=== PATIENT | female | born 1940 | race Caucasian/White ===

== ENCOUNTER 2016-05-15 08:26 | Day surgery (SDC) | payer MEDICARE ==
--- NOTE | 2016-04-19 07:45 | HP ---
HISTORY AND PHYSICAL: DATE OF ADMISSION: 05/15/16 DATE OF OFFICE VISIT: 04/18/16 SURGEON: Nery Huerta MD PROCEDURE: Removal of hardware, right knee. CHIEF COMPLAINT: Right knee pain. HISTORY OF PRESENT ILLNESS: Ms. Jaramillo is a 75-year-old female who underwent an ORIF of her right femur on 09/28/15. She comes today with complaints of right knee pain on the medial aspect in the k nee where there is a prominent screw tip. She says she has pain with full extension and every time she has to stand from a seated position. She has elected to proceed to have the screw removed. Linden hartmann is scheduled for 05/15/16. PAST MEDICAL HISTORY: AFib, mitral valve disease, hypothyroidism, and history of a DVT. PAST SURGICAL HISTORY: ORIF of the right femur, right elbow surgery, right knee arthroscopy, and ap pendectomy. CURRENT MEDICATIONS: 1. Vitamin D. 2. Metoprolol. 3. Levothyroxine. 4. Multaq. 5. Fish oil. 6. Aspirin. ALLERGIES: To CIPRO. FAMILY HISTORY: Denies. SOCIAL HISTORY: She is a 75-year-old female. She lives with her . She does not smoke, use drugs, or alcohol. REVIEW OF SYSTEMS: A complete 14-point review of systems was reviewed with the patient and was posi tive for a history of DVT. PHYSICAL EXAMINATION GENERAL: She is well-developed, well-nourished in no acute distress. VITAL SIGNS: She stands 5 feet 7 inches tall, weighs 145 pounds, her blood pressure is 108/58, her heart rate is 78. HEENT: Normocephalic, atraumatic. NECK: Supple. No palpable lymph nodes. Trachea is midline. PULMONARY: The lungs are clear to auscultation bilaterally. No wheezes, rhonchi, or rales. CARDIO: Regular rate and rhythm. Strong S1, S2. No murmurs, gallops, or rubs. ABDOMEN: Soft, nontender, nondistended. NEUROLOGICAL: Alert and oriented x3. Cranial nerves II through XII are intact. MUSCULOSKELETAL: Right lower extremity: The skin is intact. There is mild-to- moderate joint effu deven. She has full range of motion; however, full extension reproduces pain and palpation over the medial aspect of the knee reveals tip of screw. ASSESSMENT AND PLAN: Ms. Jaramillo is a 75-year-old female who underwent an ORIF of the right femur back in August. She continues to have some medial knee pain secondary to tip of the screw being sligh tly too long. She has elected to proceed with surgery to have that screw removed. Her surgery is s cheduled for 05/15/[address] Huerta. ROLANDO CAMACHO [id number]/[facility] #: [id number]
[~2016-05-15 08:26] MED LIST: Buffered Lidocaine 1% SYR 3ML* 3 ML/SYR SYRINGE INTRADERM ONE
[2016-05-15] MEDS ORDERED: ceFAZolin 2 GM PREMIX (*) 2 GM/50 ML BAG IVPB ONE (08:40)
[2016-05-15] MEDS ORDERED: Bupivacaine 0.5% SDV PF* 30 ML VIAL ONE (09:48)
[2016-05-15] MEDS ORDERED: fentaNYL* 50 MCG/ML 2 ML VIAL (100 MCG VIAL) ONE (10:45)
[2016-05-15] MEDS ORDERED: Midazolam* 1 MG/ML 5 ML VIAL (5 MG) ONE (10:45)
[2016-05-15] MEDS ORDERED: Chloroprocaine 2%* 20 ML VIAL ONE (10:49)
[2016-05-15] MEDS ORDERED: fentaNYL* 50 MCG/ML 2 ML VIAL (100 MCG VIAL) IV PRN (11:28)
[2016-05-15] MEDS ORDERED: oxyCODONE/Acetamin 5/325 MG* TAB PO PRN (11:28)
[2016-05-15 13:57] VITALS: BP 126/52
--- NOTE | 2016-05-16 15:13 | RAD ---
INDICATION: Removal of hardware, S 72.421D COMPARISONS: None relevant TECHNIQUE: Fluoroscopy was provided for a surgical procedure. Total fluoroscopy time is: 3.5 seconds FINDINGS: Spot images demonstrate a fixation plate and screws of the distal femur IMPRESSION: FLUOROSCOPY WAS PROVIDED FOR A SURGICAL PROCEDURE CPT II Codes: 6045F
--- NOTE | 2016-05-17 04:59 | OP ---
DATE OF OPERATION: 05/15/16 [facility] DATE OF : 36 ATTENDING SURGEON: Nery Huerta MD RETAIL SALESWORKER: ROLANDO Dyson ANESTHESIOLOGIST: Dr. Jamil Rowland. ANESTHESIA: Spinal. PRE-OP DIAGNOSIS: Painful distal femur hardware. POST-OP DIAGNOSIS: Painful distal femur hardware. OPERATIVE PROCEDURE: Removal of painful hardware from right distal femur. COMPLICATIONS: None. TOURNIQUET TIME: Eight minutes. EBL: Less than 25 cc. SPECIMEN: One screw sent to pathology. BRIEF HISTORY/INDICATION: Ms. Jaramillo is a 75-year-old female who had a fall with a distal femoral fracture over six months ago. This was treated with a distal femoral locking plate. She went on to recover and did well. She has been full weightbearing and ambulating. She noticed the tip of one screw along her medial distal thigh, which caused her some pain with certain activities. She elected to have this removed. Informed consent was obtained from the patient. She understood the risks of surgery included but were not limited to bleeding, infection, damage to nearby structures, continued pain, need for further surgery, inability to remove the hardware, fracture, stroke, heart attack, blood clot and . She wished to proceed. INTRAOPERATIVE FINDINGS: Intraoperatively, the patient's most distal screw in the distal femoral locking plate did protrude medially. This was removed without any visible purulence or obvious abnormality around the plate or screw. DESCRIPTION OF PROCEDURE: Ms. Jaramillo was identified in the preanesthesia unit. Her right lower extremity was marked as the correct operative site. Informed consent was signed and placed in the chart. The patient was taken to the operating room and placed under spinal anesthesia. Tourniquet was placed on the right thigh. Right lower extremity was prepped and draped in the usual sterile fashion. Preop time-out was made to correctly identify the patient's side and site. Appropriate perioperative antibiotics were given within 1 hour of incision. AP views on the C-arm were used to confirm the position for the incision. A 4- cm incision was made along her prior distal incision. This was opened carefully with tenotomies. The lateral fascia was incised in line with the incision. The plate and screws were easily visible at this point. A small amount of fibrous tissue was removed from the most distal screw. There was no purulence or other abnormal tissue. The correct screwdriver was located and chosen. This was used to remove the most distal screw. At this point, the protruding screw tip was palpably removed. C-arm views confirmed satisfactory removal of the screw. The area was cleaned with a curette. The incision was then copiously irrigated with sterile saline. The lateral fascia was reapproximated using interrupted 2-0 Vicryl. The rest of the incision was closed in a layered fashion using 2-0 Vicryl and the skin was closed with running 3-0 Monocryl and Dermabond. Sterile Adaptic, 4x4's, and paper tape were used to cover the incision. The patient's anesthesia was reversed without difficulty. She was taken to the PACU in stable condition. Total tourniquet time for this procedure was 8 minutes. [id number]/[facility] #: [id number] MERLYN
== END 2016-05-15 14:37 | disposition home or self-care (01) ==
LOC: OR 08:26
PROVIDERS: ATTEND Orthopaedic Surgery Adult Reconstructive Orthopaedic Surgery
DX: T84.84XA Pain due to internal orthopedic prosthetic devices, implants and grafts, initial encounter (principal); S72.401D Unspecified fracture of lower end of right femur, subsequent encounter for closed fracture with routine healing; I34.8 Other nonrheumatic mitral valve disorders; I47.1 Supraventricular tachycardia; I48.0 Paroxysmal atrial fibrillation; E03.9 Hypothyroidism, unspecified; X58.XXXD Exposure to other specified factors, subsequent encounter
CPT/HCPCS: 76000; 88300; J0690; J2250; J2400; J3010

== ENCOUNTER 2021-06-06 09:43 | Inpatient (IN) ==
[2021-06-06] MEDS ORDERED: Morphine 2 MG/ML SYRINGE IV ONE (10:17)
[2021-06-06] MEDS ORDERED: Ondansetron 4 mg VIAL 2 MG/ML 2 ml VIAL IV ONE ×3 (10:17→17:45)
[2021-06-06 11:04] LABS: ABS Basophils 0.1 10^3/ul (0-0.2); ABS Eosinophils 0.1 10^3/ul (0-0.6); ABS Lymphocytes 0.9 10^3/ul (1.0-4.8); ABS Monocytes 0.3 10^3/ul (0-0.8); Eosinophil % 1.2 %; Hematocrit 35 % (35-47); Hemoglobin 11.7 g/dL (12.0-16.0); Lymphocyte % 14.3 %; Mean Corpuscular HGB Conc 33 g/dL (31-36); Mean Corpuscular Hemoglobin 30 pg (27-31); Mean Corpuscular Volume 90 fL (80-97); Mean Platelet Volume 9.4 fL (7.4-10.4); Platelet Count 204 10^3/uL (150-450); Red Blood Count 3.93 10^6 /uL (3.70-4.87); Red Cell Distribution Width 14 % (10-15); White Blood Count 6.3 10^3/uL (3.5-10.8)
[2021-06-06 11:21] LABS: Activated Partial Thrombo Time 31.2 seconds (26.0-38.0); INR 1.02 (0.86-1.15)
[2021-06-06 12:29] LABS: Albumin/Globulin Ratio 1.4 (1-3); Calcium 9.6 mg/dL (8.6-10.3); Globulin 2.9 g/dL (2-4); Potassium 3.9 mmol/L (3.5-5.0); Total Bilirubin 0.6 mg/dL (0.2-1.0); Total Protein 6.9 g/dL (6.4-8.9); eGFR CKD-EPI 84.8 (>60)
[2021-06-06] MEDS ORDERED: HYDROmorphone 0.5 MG/0.5 ML SYRINGE IV SLOW PU ONE (13:02)
[2021-06-06] MEDS ORDERED: Metoclopramide 5 MG/ML VIAL (10 mg) IV SLOW PU ONE (13:02)
[2021-06-06 13:28] LABS: Calcium 9.5 mg/dL (8.6-10.3); Potassium 3.6 mmol/L (3.5-5.0); eGFR CKD-EPI 87.2 (>60)
[2021-06-06] MEDS ORDERED: Lactated Ringers 1000 ml BAG 1,000 ML IV SCH ×2 (14:00)
[2021-06-06] MEDS: Metoprolol Tartrate 5 mg VIAL 5 ml VIAL (1 mg/ml) IV SCH ×2 (14:06→20:59)
[2021-06-06] MEDS ORDERED: fentaNYL 100 mcg/2 ml 50 MCG/ML VIAL IV SLOW PU PRN (16:03)
[2021-06-06] MEDS: Prochlorperazine 5 mg/ml 2 ml VIAL (10 mg) IV PRN (16:22)
[2021-06-06] MEDS ORDERED: Metoclopramide 5 MG/ML VIAL (10 mg) IV ONE (17:47)
[2021-06-06] MEDS ORDERED: Metoclopramide 5 MG/ML VIAL (10 mg) ONE (17:52)
[2021-06-06] MEDS ORDERED: Ondansetron 4 mg VIAL 2 MG/ML 2 ml VIAL ONE ×2 (17:52→19:02)
[2021-06-06] MEDS ORDERED: Succinylcholine 200 mg VIAL 20 mg/ml 10 ml VIAL (200 mg) ONE (18:00)
[2021-06-06] MEDS ORDERED: Propofol 10 MG/ML 20 ML BTL ONE ×4 (18:00→20:15)
[2021-06-06] MEDS ORDERED: Lidocaine 2% PF 5 ML VIAL ONE (18:01)
[2021-06-06] MEDS ORDERED: ceFAZolin 2 GM in NS PREMIX 2 GM/100 ML BAG IVPB ONE (18:01)
[2021-06-06] MEDS ORDERED: fentaNYL 100 mcg/2 ml 50 MCG/ML VIAL ONE (18:04)
[2021-06-06] MEDS ORDERED: ROPIVACAINE 5 MG/ML 30 ML BTL (0.5%) ONE (18:06)
[2021-06-06] MEDS ORDERED: Rocuronium 50 mg VIAL 10 mg/ml 5 ml VIAL (50 mg) ONE (18:06)
[2021-06-06] MEDS ORDERED: Dexamethasone IV 4 MG/ML VIAL 1 ml VIAL ONE (19:04)
[2021-06-06] MEDS ORDERED: Scopolamine 1 mg/72hr PATCH ONE (19:07)
[2021-06-06] MEDS ORDERED: Midazolam 2 mg/2 ml VIAL 1 mg/ml 2 ml VIAL (2 mg) ONE ×2 (19:09→19:34)
[2021-06-06] MEDS ORDERED: EPHEDrine (Pressors) 50 MG/ML VIAL ONE (19:17)
[2021-06-06] MEDS ORDERED: Acetaminophen IV 1 GM/100ML 100 ML IV ONE (20:40)
[2021-06-06 23:56] LABS: ABS Lymphocytes 0.3 10^3/ul (1.0-4.8); ABS Monocytes 0.2 10^3/ul (0-0.8); ABS Neutrophils 8.6 10^3/ul (1.5-7.7); Hematocrit 32 % (35-47); Hemoglobin 10.1 g/dL (12.0-16.0); Lymphocyte % 3.4 %; Mean Corpuscular HGB Conc 32 g/dL (31-36); Mean Corpuscular Hemoglobin 29 pg (27-31); Mean Corpuscular Volume 92 fL (80-97); Mean Platelet Volume 9.5 fL (7.4-10.4); Platelet Count 166 10^3/uL (150-450); Red Blood Count 3.45 10^6 /uL (3.70-4.87); Red Cell Distribution Width 14 % (10-15); White Blood Count 9.2 10^3/uL (3.5-10.8)
[2021-06-07 00:41] LABS: Calcium 8.7 mg/dL (8.6-10.3); Potassium 3.6 mmol/L (3.5-5.0); eGFR CKD-EPI 88.5 (>60)
[2021-06-07] MEDS: Metoprolol Tartrate 5 mg VIAL 5 ml VIAL (1 mg/ml) IV SCH (00:43)
[2021-06-07] MEDS: ceFAZolin 1 GM X 3 DOSES POST-OP Q8H (AddVan) IVPB SCH ×3 (02:24→18:56)
[2021-06-07 05:47] LABS: ABS Lymphocytes 0.6 10^3/ul (1.0-4.8); ABS Monocytes 0.5 10^3/ul (0-0.8); ABS Neutrophils 7.1 10^3/ul (1.5-7.7); Hematocrit 28 % (35-47); Hemoglobin 9.4 g/dL (12.0-16.0); Lymphocyte % 6.9 %; Mean Corpuscular HGB Conc 34 g/dL (31-36); Mean Corpuscular Hemoglobin 30 pg (27-31); Mean Corpuscular Volume 89 fL (80-97); Mean Platelet Volume 9.6 fL (7.4-10.4); Platelet Count 160 10^3/uL (150-450); Red Blood Count 3.12 10^6 /uL (3.70-4.87); Red Cell Distribution Width 14 % (10-15); White Blood Count 8.2 10^3/uL (3.5-10.8)
[2021-06-08] MEDS: Prochlorperazine 5 mg/ml 2 ml VIAL (10 mg) IV PRN (03:58)
[2021-06-08 06:09] LABS: ABS Eosinophils 0.1 10^3/ul (0-0.6); ABS Lymphocytes 0.7 10^3/ul (1.0-4.8); ABS Monocytes 0.5 10^3/ul (0-0.8); ABS Neutrophils 5.8 10^3/ul (1.5-7.7); Eosinophil % 0.8 %; Hematocrit 23 % (35-47); Lymphocyte % 9.4 %; Mean Corpuscular HGB Conc 34 g/dL (31-36); Mean Corpuscular Hemoglobin 30 pg (27-31); Mean Corpuscular Volume 89 fL (80-97); Mean Platelet Volume 9.3 fL (7.4-10.4); Platelet Count 130 10^3/uL (150-450); Red Blood Count 2.63 10^6 /uL (3.70-4.87); Red Cell Distribution Width 14 % (10-15); White Blood Count 7.1 10^3/uL (3.5-10.8)
[2021-06-08] MEDS: Ondansetron 4 mg VIAL 2 MG/ML 2 ml VIAL IV PRN (09:13)
[2021-06-08] MEDS ORDERED: Oral Rinse (Biotene)(NF) 237 ML or 473 ML ORAL RINSE BTL MT PRN (09:58)
[2021-06-08] MEDS: Scopolamine 1 mg/72hr PATCH TRANSDERM SCH (13:59)
[2021-06-09 06:59] LABS: ABS Eosinophils 0.1 10^3/ul (0-0.6); ABS Lymphocytes 0.8 10^3/ul (1.0-4.8); ABS Monocytes 0.5 10^3/ul (0-0.8); ABS Neutrophils 4.8 10^3/ul (1.5-7.7); Eosinophil % 0.9 %; Hematocrit 24 % (35-47); Lymphocyte % 13.1 %; Mean Corpuscular HGB Conc 34 g/dL (31-36); Mean Corpuscular Hemoglobin 30 pg (27-31); Mean Corpuscular Volume 89 fL (80-97); Mean Platelet Volume 9.5 fL (7.4-10.4); Platelet Count 142 10^3/uL (150-450); Red Blood Count 2.65 10^6 /uL (3.70-4.87); Red Cell Distribution Width 13 % (10-15); White Blood Count 6.2 10^3/uL (3.5-10.8)
[2021-06-09] MEDS: Ondansetron 4 mg VIAL 2 MG/ML 2 ml VIAL IV PRN (09:00)
[2021-06-10 05:02] LABS: ABS Eosinophils 0.2 10^3/ul (0-0.6); ABS Monocytes 0.5 10^3/ul (0-0.8); ABS Neutrophils 4.2 10^3/ul (1.5-7.7); Eosinophil % 2.8 %; Hematocrit 23 % (35-47); Hemoglobin 7.7 g/dL (12.0-16.0); Lymphocyte % 16.8 %; Mean Corpuscular HGB Conc 34 g/dL (31-36); Mean Corpuscular Hemoglobin 30 pg (27-31); Mean Corpuscular Volume 89 fL (80-97); Mean Platelet Volume 9.3 fL (7.4-10.4); Nucleated Red Blood Cells % 0.1; Platelet Count 149 10^3/uL (150-450); Red Blood Count 2.55 10^6 /uL (3.70-4.87); Red Cell Distribution Width 14 % (10-15)
[2021-06-10] MEDS: Acetaminophen IV 1 GM/100ML 100 ML IV PRN ×2 (05:18→21:23)
[2021-06-10] MEDS ORDERED: Iron Sucrose 20 MG/ML 5 ML VIAL IV PUSH SCH (09:00)
[2021-06-10 09:23] LABS: Total Iron Binding Capacity 246 mcg/dL (250-450); Transferrin 176 mg/dL (203-362)
[2021-06-10 09:24] LABS: % Iron Saturation 8 % (15-55); Iron < 20 ug/dL (50-212); Unsaturated Iron Binding 226 ug/dL
[2021-06-10] MEDS: Iron Sucrose 200 MG in NS 0.9% 100 ml IVPB SCH (09:56)
[2021-06-11 06:19] LABS: ABS Basophils 0.1 10^3/ul (0-0.2); ABS Eosinophils 0.3 10^3/ul (0-0.6); ABS Lymphocytes 1.2 10^3/ul (1.0-4.8); ABS Monocytes 0.5 10^3/ul (0-0.8); ABS Neutrophils 3.2 10^3/ul (1.5-7.7); Eosinophil % 5.5 %; Hematocrit 22 % (35-47); Hemoglobin 7.4 g/dL (12.0-16.0); Mean Corpuscular HGB Conc 34 g/dL (31-36); Mean Corpuscular Hemoglobin 30 pg (27-31); Mean Corpuscular Volume 89 fL (80-97); Mean Platelet Volume 9.6 fL (7.4-10.4); Nucleated Red Blood Cells % 0.1; Platelet Count 177 10^3/uL (150-450); Red Blood Count 2.45 10^6 /uL (3.70-4.87); Red Cell Distribution Width 14 % (10-15); White Blood Count 5.3 10^3/uL (3.5-10.8)
[2021-06-11] MEDS: Iron Sucrose 200 MG in NS 0.9% 100 ml IVPB SCH (10:30)
[2021-06-11] MEDS: Scopolamine 1 mg/72hr PATCH TRANSDERM SCH (16:44)
[2021-06-11 17:37] LABS: Urine Appearance Turbid; Urine Bilirubin Negative (Negative); Urine Blood 2+ (Negative); Urine Color Yellow; Urine Glucose Negative (Negative); Urine Ketones Negative (Negative); Urine Nitrite Negative (Negative); Urine Protein Negative (Negative); Urine Specific Gravity 1.005 (1.002-1.030); Urine Urobilinogen Negative (Negative)
[2021-06-12 06:18] LABS: ABS Basophils 0.1 10^3/ul (0-0.2); ABS Eosinophils 0.2 10^3/ul (0-0.6); ABS Lymphocytes 1.4 10^3/ul (1.0-4.8); ABS Monocytes 0.7 10^3/ul (0-0.8); ABS Neutrophils 7.1 10^3/ul (1.5-7.7); Eosinophil % 2.4 %; Hematocrit 28 % (35-47); Hemoglobin 9.5 g/dL (12.0-16.0); Lymphocyte % 14.8 %; Mean Corpuscular HGB Conc 34 g/dL (31-36); Mean Corpuscular Hemoglobin 30 pg (27-31); Mean Corpuscular Volume 89 fL (80-97); Mean Platelet Volume 9.1 fL (7.4-10.4); Platelet Count 231 10^3/uL (150-450); Red Blood Count 3.13 10^6 /uL (3.70-4.87); Red Cell Distribution Width 14 % (10-15); White Blood Count 9.4 10^3/uL (3.5-10.8)
[2021-06-12 07:39] VITALS: BP 134/74
[2021-06-12] MEDS: Iron Sucrose 200 MG in NS 0.9% 100 ml IVPB SCH (08:28)
[2021-06-12] MEDS: Polyethylene Glycol 3350 17 GM PACKET PO SCH ×2 (08:37→09:47)
== END 2021-06-12 09:40 | DRG 481 ==
LOC: ED 09:43 → SUATTDRO 13:27 → EDHOLD 13:27 → SSU 15:39
PROVIDERS: ADMIT Internal Medicine; ATTEND Pediatrics

== ENCOUNTER 2021-06-12 08:04 | Inpatient (IN) ==
[2021-06-12] MEDS ORDERED: Senna TAB 8.6 mg TAB PO PRN (12:28)
[2021-06-12] MEDS ORDERED: Polyethylene Glycol 3350 17 GM PACKET PO PRN (12:35)
[2021-06-13] MEDS ORDERED: Iron Sucrose 200 MG in NS 0.9% 100 ml BAG 100 ML IVPB ONE (09:00)
[2021-06-14 06:13] LABS: ABS Basophils 0.1 10^3/ul (0-0.2); ABS Eosinophils 0.3 10^3/ul (0-0.6); ABS Lymphocytes 1.1 10^3/ul (1.0-4.8); ABS Monocytes 0.8 10^3/ul (0-0.8); ABS Neutrophils 5.2 10^3/ul (1.5-7.7); Eosinophil % 4.2 %; Hematocrit 27 % (35-47); Hemoglobin 9.3 g/dL (12.0-16.0); Lymphocyte % 15.1 %; Mean Corpuscular HGB Conc 34 g/dL (31-36); Mean Corpuscular Hemoglobin 31 pg (27-31); Mean Corpuscular Volume 90 fL (80-97); Mean Platelet Volume 8.2 fL (7.4-10.4); Nucleated Red Blood Cells % 0.1; Platelet Count 270 10^3/uL (150-450); Red Blood Count 3.03 10^6 /uL (3.70-4.87); Red Cell Distribution Width 14 % (10-15); White Blood Count 7.4 10^3/uL (3.5-10.8)
[2021-06-14 06:53] LABS: Albumin 3.2 g/dL (3.2-5.2); Albumin/Globulin Ratio 1.3 (1-3); Calcium 8.8 mg/dL (8.6-10.3); Globulin 2.4 g/dL (2-4); Potassium 4.1 mmol/L (3.5-5.0); Total Bilirubin 0.8 mg/dL (0.2-1.0); Total Protein 5.6 g/dL (6.4-8.9); eGFR CKD-EPI 92.3 (>60)
[2021-06-15] MEDS: Benzocaine (DENTAL) 10% TOP.GEL TOPICAL PRN ×2 (05:30→19:31)
[2021-06-16] MEDS: Benzocaine (DENTAL) 10% TOP.GEL TOPICAL PRN ×2 (01:47→16:14)
[2021-06-17] MEDS: Benzocaine (DENTAL) 10% TOP.GEL TOPICAL PRN (15:54)
[2021-06-18] MEDS: Benzocaine (DENTAL) 10% TOP.GEL TOPICAL PRN (05:20)
[2021-06-21 06:51] LABS: ABS Basophils 0.1 10^3/ul (0-0.2); ABS Eosinophils 0.2 10^3/ul (0-0.6); ABS Lymphocytes 1.2 10^3/ul (1.0-4.8); ABS Monocytes 0.4 10^3/ul (0-0.8); ABS Neutrophils 3.4 10^3/ul (1.5-7.7); Eosinophil % 3.2 %; Hematocrit 30 % (35-47); Hemoglobin 10.4 g/dL (12.0-16.0); Lymphocyte % 22.5 %; Mean Corpuscular HGB Conc 34 g/dL (31-36); Mean Corpuscular Hemoglobin 31 pg (27-31); Mean Corpuscular Volume 91 fL (80-97); Mean Platelet Volume 7.8 fL (7.4-10.4); Platelet Count 386 10^3/uL (150-450); Red Blood Count 3.32 10^6 /uL (3.70-4.87); Red Cell Distribution Width 15 % (10-15); White Blood Count 5.2 10^3/uL (3.5-10.8)
[2021-06-21 07:35] LABS: Albumin 3.4 g/dL (3.2-5.2); Albumin/Globulin Ratio 1.3 (1-3); Calcium 9.1 mg/dL (8.6-10.3); Globulin 2.7 g/dL (2-4); Potassium 4.3 mmol/L (3.5-5.0); Total Bilirubin 0.6 mg/dL (0.2-1.0); Total Protein 6.1 g/dL (6.4-8.9); eGFR CKD-EPI 88.9 (>60)
[2021-06-23] MEDS: Benzocaine (DENTAL) 10% TOP.GEL TOPICAL PRN (23:33)
[2021-06-24 06:10] VITALS: BP 131/58
== END 2021-06-24 11:45 | disposition home or self-care (01) | DRG 560 ==
LOC: PMRU 10:02
PROVIDERS: ADMIT Physical Medicine & Rehabilitation; ATTEND Physical Medicine & Rehabilitation

== ENCOUNTER 2023-05-18 03:23 | Inpatient (IN) ==
[2023-05-18] MEDS: Ondansetron 4 mg VIAL 2 MG/ML 2 ml VIAL IV ONE ×3 (04:03→08:34)
[2023-05-18] MEDS: Lactated Ringers 1000 ml BAG 1,000 ML IV ONE ×2 (04:03→10:09)
[2023-05-18 04:16] LABS: Hematocrit 31.3 % (35-45); Hemoglobin 10.7 g/dL (11.5-14.3); Mean Corpuscular Hemoglobin 29.5 pg (27-33); Mean Corpuscular Hgb Conc 34.3 g/dL (31-36); Mean Corpuscular Volume 86.1 fL (80-97); Mean Platelet Volume 8.6 fL (7.5-11.2); Platelet Count 212 10^3/uL (150-450); Red Blood Count 3.64 10^6/uL (3.63-4.92); Red Cell Distribution Width 12.7 % (12-17); White Blood Count 25.9 10^3/uL (3.8-11.8)
[2023-05-18 04:27] LABS: ALT 13 U/L (7-52); AST 15 U/L (13-39); Albumin 3.3 g/dL (3.2-5.2); Albumin/Globulin Ratio 0.9 (1-3); Alkaline Phosphatase 93 U/L (35-149); Anion Gap 9 mmol/L (2-16); Blood Urea Nitrogen 14 mg/dL (6-24); CO2 Carbon Dioxide 21 mmol/L (22-32); Chloride 94 mmol/L (101-111); Creatinine, Serum 0.77 mg/dL (0.51-0.95); Globulin 3.5 g/dL (2-4); Glucose 157 mg/dL (70-100); Sodium 124 mmol/L (135-145); Total Bilirubin 0.9 mg/dL (0.2-1.0); Total Protein 6.8 g/dL (6.4-8.9)
[2023-05-18 05:03] LABS: ABS Basophils 0.1 10^3/uL (0.0-0.1); ABS Lymphocytes 0.4 10^3/uL (1.0-4.8); ABS Monocytes 1.4 10^3/uL (0.0-0.9); Lymphocyte % 1.4 %
[2023-05-18] MEDS: KCL 20 MEQ/100 ML IVPREMIX 20 MEQ/100 ML BAG IV SCH (05:22)
[2023-05-18] MEDS: NS 0.9% 1000 ml BAG 1,000 ML IV SCH (05:22)
[2023-05-18 07:56] LABS: Urine Appearance Turbid; Urine Bilirubin Negative (Negative); Urine Blood 2+ (Negative); Urine Glucose Negative (Negative); Urine Ketones Negative (Negative); Urine Nitrite 1+ (Negative); Urine Protein 1+ (>=30 mg/dL) (Negative); Urine Specific Gravity 1.011 (1.002-1.030); Urine Urobilinogen Negative (Negative)
[2023-05-18 08:05] LABS: Urine Bacteria 1+ /HPF (Absent); Urine Red Blood Cell 3+(>10/hpf) /HPF (0-Trace); Urine White Blood Cell 3+(>20/hpf) /HPF (0-Trace)
[2023-05-18 08:06] LABS: Urine Color Yellow
[2023-05-18] MEDS: Iohexol 300 (CONTRAST) 10 ML SDV IV ONE (08:22)
[2023-05-18] MEDS: Piperacillin/Tazobac 3.375 BAG 3.375 GM/100 ML BAG IV ONE (08:34)
[2023-05-18] MEDS: Acetaminophen IV 1 GM/100ML 1,000 MG/100 ML BAG IV ONE (08:55)
[2023-05-18] MEDS: Famotidine IV 10 MG/ML 2 ml VIAL (20 mg) IV SLOW PU ONE (08:55)
[2023-05-18 09:02] LABS: Lipase < 10 U/L (11.0-82.0); Magnesium 1.5 mg/dL (1.9-2.7)
[2023-05-18] MEDS ORDERED: Ondansetron 4 mg VIAL 2 MG/ML 2 ml VIAL IV PRN (09:23)
[2023-05-18] MEDS ORDERED: Acetaminophen IV 1 GM/100ML 1,000 MG/100 ML BAG IV PRN (09:41)
[2023-05-18] MEDS: Magnesium Sulf 4 GM/100 ML IV 4,000 MG/100 ML BAG IVPB ONE (10:11)
[2023-05-18 10:32] LABS: Urine Osmo 281 mOsm/kg (150-1150)
[2023-05-18 10:33] LABS: Calcium 8.5 mg/dL (8.6-10.3); Creatinine, Serum 0.87 mg/dL (0.51-0.95); Potassium 3.8 mmol/L (3.5-5.0); eGFR CKD-EPI 65.7 (>60)
[2023-05-18] MEDS: Levothyroxine 100 MCG/5 ML VIAL IV SCH (10:35)
[2023-05-18] MEDS: Enoxaparin 40 MG/0.4 ML SYR SUBCUT SCH (10:35)
[2023-05-18 10:57] LABS: Osmolality Serum 268 mOsm/kg (275-295)
[2023-05-18] MEDS ORDERED: Zosyn per Pharmacy NOTE FOLLOW UP SCH (11:00)
[2023-05-18] MEDS: ZOSYN 3.375 GM Q8H per EXTENDED INFUSION IV SCH (13:05)
[2023-05-18] MEDS ORDERED: cefTRIAXone 1 gm/50 mL D5W 1 GM/50 ML BAG IV SCH (14:00)
[2023-05-18] MEDS: Pantoprazole VIAL 40 MG VIAL IV SCH (18:33)
[2023-05-19] MEDS: Prochlorperazine 5 mg/ml 2 ml VIAL (10 mg) IV PRN (02:04)
[2023-05-19 06:29] LABS: Hematocrit 28.8 % (35-45); Hemoglobin 9.8 g/dL (11.5-14.3); Mean Corpuscular Hemoglobin 29.4 pg (27-33); Mean Corpuscular Hgb Conc 33.9 g/dL (31-36); Mean Corpuscular Volume 86.6 fL (80-97); Mean Platelet Volume 9.1 fL (7.5-11.2); Platelet Count 178 10^3/uL (150-450); Red Blood Count 3.33 10^6/uL (3.63-4.92); Red Cell Distribution Width 12.9 % (12-17); White Blood Count 32.9 10^3/uL (3.8-11.8)
[2023-05-19 06:41] LABS: Calcium 8.4 mg/dL (8.6-10.3); Creatinine, Serum 0.93 mg/dL (0.51-0.95); Magnesium 2.2 mg/dL (1.9-2.7); Potassium 3.3 mmol/L (3.5-5.0); eGFR CKD-EPI 60.6 (>60)
[2023-05-19 06:50] LABS: ABS Basophils 0.1 10^3/uL (0.0-0.1); ABS Eosinophils 0.2 10^3/uL (0.0-0.5); ABS Lymphocytes 0.9 10^3/uL (1.0-4.8); ABS Monocytes 1.7 10^3/uL (0.0-0.9); ABS Neutrophils 30.1 10^3/uL (1.5-7.6); Eosinophil % 0.7 %; Lymphocyte % 2.7 %
[2023-05-19] MEDS: Potassium Chlor 20 meq TAB.ER PO ONE ×2 (09:21→15:38)
[2023-05-19] MEDS: cefTRIAXone 2 gm/50 mL D5W 2 GM/50 ML BAG IV SCH (13:38)
[2023-05-19] MEDS: Lactated Ringers 1000 ml BAG 1,000 ML IV SCH ×2 (15:38→17:52)
[2023-05-19] MEDS: Ondansetron 4 mg VIAL 2 MG/ML 2 ml VIAL IV PRN (20:17)
[2023-05-20 06:46] LABS: ABS Basophils 0.1 10^3/uL (0.0-0.1); ABS Eosinophils 0.2 10^3/uL (0.0-0.5); ABS Monocytes 1.3 10^3/uL (0.0-0.9); ABS Neutrophils 15.3 10^3/uL (1.5-7.6); Eosinophil % 1.2 %; Hemoglobin 10.5 g/dL (11.5-14.3); Lymphocyte % 5.8 %; Mean Corpuscular Hemoglobin 29.3 pg (27-33); Mean Corpuscular Hgb Conc 33.7 g/dL (31-36); Mean Corpuscular Volume 86.8 fL (80-97); Mean Platelet Volume 9.7 fL (7.5-11.2); Platelet Count 200 10^3/uL (150-450); Red Blood Count 3.57 10^6/uL (3.63-4.92); Red Cell Distribution Width 13.1 % (12-17); White Blood Count 17.9 10^3/uL (3.8-11.8)
[2023-05-20 07:04] LABS: Calcium 8.9 mg/dL (8.6-10.3); Creatinine, Serum 0.86 mg/dL (0.51-0.95); Magnesium 1.9 mg/dL (1.9-2.7); Potassium 3.4 mmol/L (3.5-5.0); eGFR CKD-EPI 66.6 (>60)
[2023-05-20] MEDS: Potassium Chlor 20 meq TAB.ER PO ONE ×2 (14:31→16:53)
[2023-05-21 06:00] LABS: ABS Eosinophils 0.3 10^3/uL (0.0-0.5); ABS Lymphocytes 1.2 10^3/uL (1.0-4.8); ABS Monocytes 1.2 10^3/uL (0.0-0.9); ABS Neutrophils 7.7 10^3/uL (1.5-7.6); ABS Nucleated RBC 0.01 10^3/ul; Eosinophil % 3.3 %; Hematocrit 30.3 % (35-45); Hemoglobin 10.6 g/dL (11.5-14.3); Lymphocyte % 11.2 %; Mean Corpuscular Hemoglobin 29.9 pg (27-33); Mean Corpuscular Hgb Conc 34.8 g/dL (31-36); Mean Corpuscular Volume 85.9 fL (80-97); Mean Platelet Volume 9.1 fL (7.5-11.2); Nucleated Red Blood Cells % 0.1 %/100WBC (0.0-0.8); Platelet Count 228 10^3/uL (150-450); Red Blood Count 3.53 10^6/uL (3.63-4.92); White Blood Count 10.5 10^3/uL (3.8-11.8)
[2023-05-21 06:31] LABS: Calcium 8.4 mg/dL (8.6-10.3); Creatinine, Serum 0.81 mg/dL (0.51-0.95); Potassium 3.8 mmol/L (3.5-5.0); eGFR CKD-EPI 71.5 (>60)
[2023-05-21 06:37] LABS: Magnesium 1.7 mg/dL (1.9-2.7)
[2023-05-21 08:19] LABS: Ferritin 339.5 ng/mL (11-307)
[2023-05-21] MEDS: Magnesium Sulfate IV 1GM/100ML 1 GM/100 ML BAG IV ONE (08:20)
[2023-05-21 13:27] VITALS: BP 108/45
== END 2023-05-21 16:00 | disposition home or self-care (01) | DRG 871 ==
LOC: ED 03:23 → EDHOLD 09:23 → SUATTDRO 09:23 → MED 13:32
PROVIDERS: ADMIT Hospitalist; ATTEND Student in an Organized Health Care Education/Training Program